=== PATIENT | female | born 1950 | race Caucasian/White ===

== ENCOUNTER 2021-10-20 00:48 | Inpatient (IN) | payer MEDICARE ==
[2021-10-20 02:29] VITALS: BMI 20.3
[2021-10-20] MEDS ORDERED: Ondansetron PF 4 MG/2 ML Vial IVP PRN (02:38)
[2021-10-20] MEDS ORDERED: Ondansetron ODT 4 MG TAB PO PRN (02:38)
[2021-10-20] MEDS ORDERED: Morphine 2 MG/ML VIAL SLOW IVP PRN (02:38)
[2021-10-20] MEDS ORDERED: traMADol HCl 50 MG TAB PO PRN (02:41)
[2021-10-20] MEDS ORDERED: Cyclobenzaprine 10 MG TAB PO PRN (02:41)
[2021-10-20] MEDS ORDERED: Potassium Chloride 20 MEQ TAB PO SCH (03:00)
[2021-10-20] MEDS ORDERED: Magnesium 2 GM/50 ML(in water) 2 GM in Premix Bag 1 BAG IVPB SCH (03:00)
[2021-10-20] MEDS: Acetaminophen 325 MG TAB PO SCH ×2 (03:02→08:06)
[2021-10-20] MEDS: Sodium Chloride 0.9% 1,000 ML IV SCH ×4 (03:02→23:34)
[2021-10-20] MEDS ORDERED: Labetalol HCl 100 MG/20 ML VIAL SLOW IVP SCH (04:45)
[2021-10-20] MEDS ORDERED: hydrALAZINE 20 MG/ML VIAL SLOW IVP PRN (04:56)
[2021-10-20] MEDS: Potassium Chloride 20 MEQ in Premix Bag 1 BAG IVPB SCH ×2 (05:06→08:03)
[2021-10-20] MEDS: Levothyroxine Sodium 125 MCG TAB PO SCH (05:16)
[2021-10-20] MEDS ORDERED: traMADol HCl 50 MG TAB PO SCH (06:00)
[2021-10-20 06:39] LABS: #Lymphocytes 0.7 thou/uL (1.20-3.40); #Neutrophils 10.6 thou/uL (1.40-6.50); %Basophils 0.3 % (0.0-1.0); %Eosinophils 0.3 % (0.0-10.0); %Lymphocytes 5.5 % (21.0-51.0); %Monocytes 7.8 % (0.0-10.0); %Neutrophils 86.1 % (42.0-75.0); Hemoglobin 12.7 g/dL (12.0-16.0); Mean Corpuscular HGB CONC 34.5 g/dL (32.0-36.0); Mean Corpuscular Hemoglobin 33.1 pg (27.0-31.0); Mean Platelet Volume 9.5 fL (7.4-10.4); Platelet Count 145 thou/uL (130-400); RBC Distribution Width 12.3 % (11.5-14.5); Red Blood Cell (RBC) Count 3.84 mill/uL (4.20-5.40); White Blood Cell (WBC) Count 12.3 thou/uL (4.8-10.8)
[2021-10-20 07:07] LABS: Anion Gap 15 mmol/L (10-20); BUN (Urea Nitrogen) 9 mg/dL (9.8-20.1); Calc. Creatinine Clearance 33 mL/min (70-130); Calcium 9.6 mg/dL (7.8-10.44); Carbon Dioxide 26 mmol/L (23-31); Chloride 103 mmol/L (98-107); Estimated GFR 40; Glucose 150 mg/dL (80-115); Magnesium 2.7 mg/dL (1.6-2.6); Potassium 3.4 mmol/L (3.5-5.1); Sodium 141 mmol/L (136-145)
[2021-10-20 07:18] LABS: Phosphorus 2.5 mg/dL (2.3-4.7)
[2021-10-20 07:26] LABS: Troponin I 0.011 ng/mL (< 0.028)
[2021-10-20] MEDS: Amlodipine 10 MG TAB PO SCH (08:03)
[2021-10-20] MEDS: Senokot S 8.6-50 MG TAB PO SCH ×2 (08:07→20:35)
[2021-10-20] MEDS: Polyethylene Glycol 3350 17 GM Packet PO SCH (08:07)
[2021-10-20] MEDS ORDERED: Clindamycin/D5W 900 MG in Premix Bag 1 BAG IVPB SCH (08:30)
[2021-10-20] MEDS: Acetaminophen 500 MG TAB PO SCH ×4 (08:34→23:34)
[2021-10-20] MEDS ORDERED: Famotidine 20 MG TAB PO SCH (09:00)
[2021-10-20 09:52] LABS: Bacteria/HPF 2+ HPF (None Seen); Bilirubin Negative (Negative); Blood, Urine Negative (Negative); Clarity Clear (Clear); Glucose, Urine (Dipstick) Normal (Negative); Ketone, Urine 10 mg/dL (Negative); Leukocyte Negative Leu/uL (Negative); Nitrite Negative (Negative); Protein, Urine (Dipstick) 100 mg/dL (Neg-Trace); RBC/HPF 0-3 HPF (0-3); Squamous Epithelial 0-3 HPF (0-3); Urobilinogen Normal mg/dL (Less than 2); pH, Urine 7.5 (5.0-9.0)
[2021-10-20 09:53] LABS: Urine Culture Reflex Yes Yes
[2021-10-20] MEDS ORDERED: Fentanyl 100 MCG/2 ML VIAL SLOW IVP SCH (11:10)
[2021-10-20] MEDS ORDERED: Acetaminophen/Codeine 30-300mg Tablet PO SCH (11:15)
[2021-10-20] MEDS: Gabapentin 100 MG CAP PO SCH ×2 (14:48→20:35)
[2021-10-20] MEDS ORDERED: fentaNYL Citrate/PF 100 MCG/2 ML SYRINGE ONE (15:04)
[2021-10-20] MEDS ORDERED: Neomycin-Polymyxin 1 ML AMP ONE (15:20)
[2021-10-20] MEDS ORDERED: Clindamycin/D5W 900 mg/50 ml Premix Bag ONE (15:26)
[2021-10-20] MEDS ORDERED: ePHEDrine 50 MG/ML VIAL ONE (15:37)
[2021-10-20] MEDS ORDERED: Dexamethasone 20 MG/5 ML VIAL ONE (15:37)
[2021-10-20] MEDS ORDERED: Rocuronium Bromide 10 MG/ML (10ML VIAL) ONE (15:37)
[2021-10-20] MEDS ORDERED: Lidocaine 1% PF 5 ML VIAL ONE (15:37)
[2021-10-20] MEDS ORDERED: PROPOFOL 200 MG/20 ML VIAL ONE (15:37)
[2021-10-20] MEDS ORDERED: Ondansetron PF 4 MG/2 ML Vial ONE (15:37)
[2021-10-20] MEDS ORDERED: SUGAMMADEX SODIUM 200 MG/2 ML VIAL ONE (16:29)
[2021-10-20] MEDS ORDERED: Promethazine HCl 25 MG/ML VIAL IM PRN (16:56)
[2021-10-20] MEDS ORDERED: Promethazine HCl 25 MG/ML VIAL IVPB PRN (16:56)
[2021-10-20] MEDS ORDERED: Ondansetron HCl/PF 4 MG/2 ML Vial IVP PRN (16:56)
[2021-10-20] MEDS ORDERED: Potassium Phosphate 30 MMOL in Sodium Chloride 0.9% 250 ML 250 ML IVPB SCH (20:15)
[2021-10-20] MEDS: Clindamycin/D5W 900 MG in Premix Bag 1 BAG IVPB SCH (20:35)
[2021-10-21] MEDS: Levothyroxine Sodium 125 MCG TAB PO SCH (06:05)
[2021-10-21] MEDS: Acetaminophen 500 MG TAB PO SCH ×3 (06:05→17:23)
[2021-10-21] MEDS: Clindamycin/D5W 900 MG in Premix Bag 1 BAG IVPB SCH (06:05)
[2021-10-21] MEDS: Polyethylene Glycol 3350 17 GM Packet PO SCH (08:03)
[2021-10-21] MEDS: Amlodipine 10 MG TAB PO SCH (08:03)
[2021-10-21] MEDS: Gabapentin 100 MG CAP PO SCH ×3 (08:04→20:57)
[2021-10-21] MEDS: Senokot S 8.6-50 MG TAB PO SCH ×2 (08:04→20:58)
[2021-10-21] MEDS ORDERED: Aspirin 81 mg Enteric Coated Tablet PO SCH (09:00)
[2021-10-21 10:08] LABS: Anion Gap 17 mmol/L (10-20); BUN (Urea Nitrogen) 15 mg/dL (9.8-20.1); Calc. Creatinine Clearance 27 mL/min (70-130); Calcium 8.6 mg/dL (7.8-10.44); Carbon Dioxide 22 mmol/L (23-31); Chloride 104 mmol/L (98-107); Estimated GFR 32; Glucose 182 mg/dL (80-115); Sodium 138 mmol/L (136-145)
[2021-10-21] MEDS: Sodium Chloride 0.9% 1,000 ML IV SCH ×2 (12:45→23:23)
[2021-10-21] MEDS ORDERED: Sodium Chloride 0.9% 500 ML IV SCH ×3 (15:00→20:30)
[2021-10-21] MEDS: Heparin 5,000 UNITS/ML VIAL SC SCH (20:58)
[2021-10-22] MEDS: Acetaminophen 500 MG TAB PO SCH ×2 (00:27→06:14)
[2021-10-22 05:47] LABS: #Lymphocytes 0.9 thou/uL (1.20-3.40); #Monocytes 0.6 thou/uL (0.11-0.59); #Neutrophils 6.7 thou/uL (1.40-6.50); %Basophils 0.2 % (0.0-1.0); %Eosinophils 0.3 % (0.0-10.0); %Lymphocytes 10.6 % (21.0-51.0); %Neutrophils 81.9 % (42.0-75.0); Hemoglobin 9.6 g/dL (12.0-16.0); Mean Corpuscular HGB CONC 33.5 g/dL (32.0-36.0); Mean Corpuscular Volume 98.5 fL (78.0-98.0); Mean Platelet Volume 10.2 fL (7.4-10.4); Platelet Count 97 thou/uL (130-400); RBC Distribution Width 12.9 % (11.5-14.5); Red Blood Cell (RBC) Count 2.93 mill/uL (4.20-5.40); White Blood Cell (WBC) Count 8.1 thou/uL (4.8-10.8)
[2021-10-22] MEDS: Sodium Chloride 0.9% 1,000 ML IV SCH ×2 (06:14→18:05)
[2021-10-22] MEDS: Levothyroxine Sodium 125 MCG TAB PO SCH (06:15)
[2021-10-22 07:18] LABS: Anion Gap 11 mmol/L (10-20); BUN (Urea Nitrogen) 16 mg/dL (9.8-20.1); Calc. Creatinine Clearance 33 mL/min (70-130); Calcium 7.9 mg/dL (7.8-10.44); Carbon Dioxide 21 mmol/L (23-31); Chloride 112 mmol/L (98-107); Estimated GFR 40; Glucose 80 mg/dL (80-115); Phosphorus 3.6 mg/dL (2.3-4.7); Potassium 4.4 mmol/L (3.5-5.1); Sodium 140 mmol/L (136-145)
[2021-10-22] MEDS ORDERED: Sodium Chloride 0.9% 1,000 ML IV SCH ×2 (08:00→09:00)
[2021-10-22] MEDS ORDERED: Sodium Chloride 0.9% 500 ML IV SCH (08:01)
[2021-10-22] MEDS ORDERED: traMADol HCl 50 MG TAB PO SCH (08:45)
[2021-10-22] MEDS: Gabapentin 100 MG CAP PO SCH ×3 (09:49→20:22)
[2021-10-22] MEDS: Senokot S 8.6-50 MG TAB PO SCH ×2 (09:49→20:24)
[2021-10-22] MEDS: Amlodipine 10 MG TAB PO SCH (09:50)
[2021-10-22] MEDS: Polyethylene Glycol 3350 17 GM Packet PO SCH (09:50)
[2021-10-22] MEDS: Heparin 5,000 UNITS/ML VIAL SC SCH ×2 (10:02→20:23)
[2021-10-22 12:40] LABS: Anion Gap 12 mmol/L (10-20); BUN (Urea Nitrogen) 14 mg/dL (9.8-20.1); Calc. Creatinine Clearance 33 mL/min (70-130); Calcium 8.2 mg/dL (7.8-10.44); Carbon Dioxide 22 mmol/L (23-31); Chloride 111 mmol/L (98-107); Estimated GFR 41; Glucose 92 mg/dL (80-115); Potassium 4.1 mmol/L (3.5-5.1); Sodium 141 mmol/L (136-145)
[2021-10-22] MEDS: traMADol HCl 50 MG TAB PO SCH ×2 (12:42→18:03)
[2021-10-22] MEDS: Acetaminophen 325 MG TAB PO SCH ×2 (12:42→18:04)
[2021-10-23] MEDS: Acetaminophen 325 MG TAB PO SCH ×3 (00:38→11:34)
[2021-10-23] MEDS: Sodium Chloride 0.9% 1,000 ML IV SCH (05:14)
[2021-10-23] MEDS: Levothyroxine Sodium 125 MCG TAB PO SCH (06:24)
[2021-10-23 06:58] LABS: Anion Gap 12 mmol/L (10-20); BUN (Urea Nitrogen) 12 mg/dL (9.8-20.1); Calc. Creatinine Clearance 42 mL/min (70-130); Calcium 8.6 mg/dL (7.8-10.44); Carbon Dioxide 23 mmol/L (23-31); Chloride 110 mmol/L (98-107); Estimated GFR 54; Glucose 87 mg/dL (80-115); Magnesium 1.9 mg/dL (1.6-2.6); Phosphorus 2.1 mg/dL (2.3-4.7); Potassium 4.1 mmol/L (3.5-5.1); Sodium 141 mmol/L (136-145)
[2021-10-23] MEDS: Gabapentin 100 MG CAP PO SCH (08:59)
[2021-10-23] MEDS: Heparin 5,000 UNITS/ML VIAL SC SCH (08:59)
[2021-10-23] MEDS: Polyethylene Glycol 3350 17 GM Packet PO SCH (09:00)
[2021-10-23] MEDS: Amlodipine 10 MG TAB PO SCH (09:00)
[2021-10-23] MEDS: Senokot S 8.6-50 MG TAB PO SCH (09:00)
[2021-10-23 12:30] VITALS: BP 127/85
[2021-10-23 14:16] VITALS: TEMP 98.6
== END 2021-10-23 14:15 | DRG 522 ==
LOC: SURG A 02:14
PROVIDERS: ADMIT Surgery; ATTEND Surgery
PROC: 0SRS0JA Replacement of Left Hip Joint, Femoral Surface with Synthetic Substitute, Uncemented, Open Approach (ICD-10-PCS; principal; 2021-10-20)
PROC: 0T9B70Z Drainage of Bladder with Drainage Device, Via Natural or Artificial Opening (ICD-10-PCS; 2021-10-20)
DX: S72.002A Fracture of unspecified part of neck of left femur, initial encounter for closed fracture (principal); N17.9 Acute kidney failure, unspecified; I10 Essential (primary) hypertension; E03.9 Hypothyroidism, unspecified; G35 Multiple sclerosis; W19.XXXA Unspecified fall, initial encounter; E87.6 Hypokalemia; E87.5 Hyperkalemia; R33.9 Retention of urine, unspecified; Y92.009 Unspecified place in unspecified non-institutional (private) residence as the place of occurrence of the external cause; Z88.0 Allergy status to penicillin; Z88.5 Allergy status to narcotic agent
CPT/HCPCS: 36415; 70450; 71045; 72170; 80048; 80053; 81001; 83735; 84100; 84484; 85025; 87086; 93005; 93010; 93880; 96374; C1713; C1776; J0360; J1100; J1644; J2405; J2704; J3010; J3475; J3480; J3490; J7030; J7050; P9045; U0002